=== PATIENT | female | born 1975 | race Caucasian/White ===

== ENCOUNTER → 2019-10-01 16:18 | Outpatient (CLI) | payer OTHER, SELFPAY ==
--- NOTE | ~2019-10-01 | MM_ITS ---
EXAMINATION: MM screening zane BI w yamileth HISTORY: Screening TECHNIQUE: Craniocaudal and mediolateral oblique 3-D tomosynthesis images were obtained and synthetic 2-D images were generated. CAD analysis was submitted and interpreted. COMPARISON: Comparison to multiple prior studies sequentially, with oldest reviewed study dated 07/14. BREAST PARENCHYMAL COMPOSITION: The breasts are extremely dense, which lowers the sensitivity of mamm ography. FINDINGS: There are new focal asymmetries in the posterior central aspect of the right breast near th e chest wall. The left breast is stable without evidence for malignancy. IMPRESSION: 1. New right breast asymmetries. 2. Additional mammographic views and possible breast ultrasound are recommended. BI-RADS Category 0: Incomplete: Needs additional imaging evaluation. Reviewed, dictated and finalized at location A. IMPRESSION: 1. New right breast asymmetries. 2. Additional mammographic views and possible breast ultrasound are recommended . BI-RADS Category 0: Incomplete: Needs additional imaging evaluation.
== END ==
PROVIDERS: Visit Provider Nurse Practitioner
DX: Z12.31 Encounter for screening mammogram for malignant neoplasm of breast (principal); R92.8 Other abnormal and inconclusive findings on diagnostic imaging of breast
CPT/HCPCS: 77063; 77067

== ENCOUNTER → 2019-10-14 10:01 | Outpatient (CLI) | payer OTHER, SELFPAY ==
--- NOTE | ~2019-10-14 | MM_ITS ---
EXAMINATION: MM diagnostic mammo unilat RT HISTORY: Right breast asymmetry on screening mammogram TECHNIQUE: Additional 3-D tomosynthesis images of the right breast were performed and synthetic 2-D i mages were generated. CAD analysis was submitted and interpreted. COMPARISON: 10/01/2019, 07/22/2018, 07/19/2017, 07/14/2016 FINDINGS: No persistent asymmetry is identified with spot compression views of the right breast. Ther e is no evidence of suspicious mass, calcification, or architectural distortion to suggest malignanc y. There has been no suspicious interval change. IMPRESSION: 1. No mammographic evidence of malignancy. 2. Recommend routine screening mammography in one year. BI-RADS Category 1: Negative Reviewed, dictated and finalized at location A.
== END ==
PROVIDERS: Visit Provider Obstetrics & Gynecology Gynecology
DX: R92.8 Other abnormal and inconclusive findings on diagnostic imaging of breast (principal)
CPT/HCPCS: 77065

== ENCOUNTER → 2020-10-04 16:57 | Outpatient (CLI) | payer OTHER, SELFPAY ==
--- NOTE | ~2020-10-04 | MM_ITS ---
EXAMINATION: MM screening [facility] BI w yamileth HISTORY: Screening mammogram TECHNIQUE: Craniocaudal and mediolateral oblique 3-D tomosynthesis images were obtained and synthetic 2-D images were generated. CAD analysis was submitted and interpreted. COMPARISON: 10/14/2019, 10/01/2019, 07/22/2018, 07/19/2017 BREAST PARENCHYMAL COMPOSITION: The breasts are extremely dense, which lowers the sensitivity of mamm ography. FINDINGS: There is no evidence of suspicious mass, calcification, or architectural distortion to sugg est malignancy in either breast. There has been no suspicious interval change. IMPRESSION: 1. No mammographic evidence of malignancy. 2. Recommend routine screening mammography in one year. BI-RADS Category 1: Negative Reviewed, dictated and finalized at location A.
== END ==
PROVIDERS: Visit Provider Nurse Practitioner
DX: Z12.31 Encounter for screening mammogram for malignant neoplasm of breast (principal)
CPT/HCPCS: 77063; 77067

== ENCOUNTER 2021-08-15 02:32 | Day surgery (SDC) | payer OTHER, SELFPAY ==
[2021-07-28 13:04] VITALS: BMI 23.8
[2021-08-15 07:45] VITALS: BP 103/63; PULSE 72; RESP 16; TEMP 36.3; O2SAT 100
[2021-08-15 07:46] VITALS: BMI 23.1
[2021-08-15] MEDS: LACTATED RINGERS 1,000 ML 150 ML IV CONT (07:55)
--- NOTE | 2021-08-15 08:12 | PM.HPGS ---
History of Present Illness History of Present Illness Consent: Risks, benefits, and alternatives have been discussed and questions answered. Patient agrees to proceed with procedure. Chief complaint: neoplasm screening Narrative: Katelynn Fraire is a 46 year old female here for first screening colonoscopy Review of Systems Constitutional: Constitutional: Denies headache(s) and Denies weakness Eyes: Eyes: Denies blurry vision ENT: Reports Normal hearing present, Denies headache(s) and Denies neck pain Cardiovascular: Cardiovascular: Denies chest pain and Denies dyspnea Respiratory: Respiratory: Denies dyspnea Gastrointestinal: Gastrointestinal: Reports no additional gastrointestinal complaints Genitourinary: Genitourinary: Denies dysuria Musculoskeletal: Musculoskeletal: Denies neck pain Integumentary/Breasts: Skin/Breast: Denies dry skin Neurologic: Reports Normal hearing present, Denies headache(s) and Denies weakness Psychiatric: Psychiatric: Denies anxiety Endocrine: Endocrine: Denies change in body appearance Hematologic/Lymphatic: Hematologic/Lymphatic: Denies easy bleeding Allergic/Immunologic: Allergic/Immunologic: Denies urticaria PMF Past Medical History Medical History (Updated 08/15/21 @ 08:13 by Sebastian Brower MD) Colon cancer screening 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 Left leg DVT (~2019) PCOS (polycystic ovarian syndrome) Prothrombin gene mutation Surgical History Surgical History H/O left knee surgery Family History Family History Other Diabetes mellitus Family history of malignant neoplasm Social History Social History Smoking status: Never smoker Second hand tobacco smoke exposure: No Alcohol intake: current Drinks per week: 2 Substance use type: does not use Spiritual care concerns: No Meds Home Medications and Allergies Home Medications Medication Instructions Recorded Confirmed Type drospirenone (contraceptive) 4 mg 4 mg PO DAILY 05/18/20 07/28/21 History (28) tablet (Slynd) Allergies Allergy/AdvReac Type Severity Reaction Status Date / Time Estrogens AdvReac Severe blood clots Verified 08/15/21 07:42 Vital Signs Vital Signs - 24 hr 06/27/22 07:45 Temperature 97.4 F L Pulse Rate 72 Respiratory Rate 16 Blood Pressure 103/63 Pulse Oximetry 100 Oxygen Delivery Room Air Exam Const: General: comfortable and no acute distress HENMT: General nose exam: Normal nares present Eyes: General: appearance normal, both eyes and all related structures Neck: Neck: no JVD Resp: Auscultation: clear to auscultation bilaterally Cardio: Rate: regular rate Rhythm: regular rhythm GI: Inspection: non-distended GI Palp: Yes Soft to palpation Skin: General skin exam: normal color Neuro: General: gait normal Speech: normal speech Extrem: General: normal to inspection Psych: Mental Status: mental status grossly normal Assessment and Plan Assessment and plan (1) Colon cancer screening: Code(s): Z12.11 - Encounter for screening for malignant neoplasm of colon Status: Acute Assessment and Plan: colonoscopy
--- NOTE | 2021-08-15 08:15 | P.PNAN_ITS ---
Anes - Initial Pre Proc Eval Procedure: Operation Date: 08/15/21 08:30 Proposed Procedures p Screening Colonoscopy - Sebastian Brower MD Date/Time: 08/15/21 08:15 Surgeon: Sebastian Brower MD Pre Op Diagnosis: neoplasm screening Patient Data Age: 46 Gender: F Height: 1.7 m Weight: 67 kg Last Vital Signs Temp 97.4 F L 08/15/21 07:45 Pulse 72 08/15/21 07:45 Resp 16 08/15/21 07:45 BP 103/63 08/15/21 07:45 Pulse Ox 100 08/15/21 07:45 O2 Del Method Room Air 08/15/21 07:45 Allergies Allergy/AdvReac Type Severity Reaction Status Date / Time Estrogens AdvReac Severe blood clots Verified 08/15/21 07:42 Home Medications Medication Instructions Recorded Confirmed Type drospirenone (contraceptive) 4 mg 4 mg PO DAILY 05/18/20 07/28/21 History (28) tablet (Slynd) Patient hx anesthesia problems: none Family hx anesthesia problems: none Results Review: All pre-operative results and documents have been reviewed as part of the pre- operative evaluation. 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 Left leg DVT (~2018) PCOS (polycystic ovarian syndrome) Prothrombin gene mutation Surgical History Surgical History H/O left knee surgery Family History Family History Other Diabetes mellitus Family history of malignant neoplasm Social History Social History Smoking status: Never smoker Second hand tobacco smoke exposure: No Alcohol intake: current Drinks per week: 2 Substance use type: does not use Spiritual care concerns: No Anes - Eval Final PreProcedure Day of Procedure 08/15/21 08:15 Patient weight: normal Heart: regular rate and rhythm Lungs: clear to auscultation Airway: Mallampati scale class II Neurological: alert and oriented Last oral intake: >/= 8 hours ASA classification: II Emergent: no Anesthetic plan: proceed Anesthesia type and monitoring: general GIVS and standard monitoring Results Review: All pre-operative results and documents have been reviewed as part of the pre- operative evaluation. Informed Consent: The patient's anesthetic plan and its attendant risks and benefits were discussed with the patient/family/POA. Questions were solicited and answers provided to the satisfaction of the patient/family/POA.
[2021-08-15 08:45] VITALS: BP 106/70; PULSE 78; RESP 15; O2SAT 100
[2021-08-15 08:55] VITALS: BP 109/73; PULSE 67; RESP 12; O2SAT 100
[2021-08-15 09:05] VITALS: BP 111/74; PULSE 70; RESP 14; O2SAT 100
== END 2021-08-15 09:12 | disposition home or self-care (01) ==
PROVIDERS: PCP Family Medicine; Visit Provider Internal Medicine Gastroenterology
PROC: 0DJD8ZZ Inspection of Lower Intestinal Tract, Via Natural or Artificial Opening Endoscopic (ICD-10-PCS; CPT 45378; principal; 2021-08-15 08:30)
DX: Z12.11 Encounter for screening for malignant neoplasm of colon (principal); K64.8 Other hemorrhoids; K63.5 Polyp of colon; Z86.718 Personal history of other venous thrombosis and embolism; E28.2 Polycystic ovarian syndrome; E56.1 Deficiency of vitamin K; D68.8 Other specified coagulation defects; D68.52 Prothrombin gene mutation
CPT/HCPCS: 45385; 88305; J2704; J7120

== ENCOUNTER → 2021-10-06 16:51 | Outpatient (CLI) | payer OTHER, SELFPAY ==
--- NOTE | ~2021-10-06 | MM_ITS ---
EXAMINATION: MM screening zane BI w yamileth HISTORY: Screening mammogram TECHNIQUE: Craniocaudal and mediolateral oblique 3-D tomosynthesis images were obtained and synthetic 2-D images were generated. Bilateral rotated lateral CC views. CAD analysis was submitted and interp reted. COMPARISON: 10/04/2020 bilateral screening mammogram 10/14/2019 diagnostic right mammogram 10/01/2019, 07/22/2018, 07/20/1999 screening mammogram examinations BREAST PARENCHYMAL COMPOSITION: The breasts are extremely dense, which lowers the sensitivity of mamm ography. FINDINGS: There is no evidence of suspicious mass, calcification, or architectural distortion to sugg est malignancy in either breast. There has been no suspicious interval change. IMPRESSION: 1. No mammographic evidence of malignancy. 2. Recommend routine screening mammography in one year. BI-RADS Category 1: Negative Reviewed, dictated and finalized at location A.
== END ==
PROVIDERS: PCP Family Medicine; Visit Provider Nurse Practitioner
DX: Z12.31 Encounter for screening mammogram for malignant neoplasm of breast (principal)
CPT/HCPCS: 77063; 77067

== ENCOUNTER → 2022-02-21 07:56 | Outpatient (CLI) | payer OTHER, SELFPAY ==
--- NOTE | ~2022-02-21 | MMUS_ITS ---
EXAMINATION: MM diagnostic zane LT w yamileth, US breast LT limited HISTORY: Pain in the upper outer quadrant of the left breast TECHNIQUE: Craniocaudal, mediolateral, and mediolateral oblique 3-D tomosynthesis images of the left breast were performed and synthetic 2-D images were generated. CAD analysis was submitted and interpr eted. High resolution limited left breast ultrasound was performed. COMPARISON: 09/26/2021, 10/04/2020, 10/01/2019 BREAST PARENCHYMAL COMPOSITION: The breasts are heterogeneously dense, which may obscure small masses . FINDINGS: MAMMOGRAPHIC FINDINGS: No suspicious mass, calcification, or architectural distortion are identified malignancy. There has been no suspicious interval change. No mammographic correlate is identified for the patient's left b reast pain. ULTRASOUND: There is no evidence of focal abnormal solid or cystic mass in the vicinity of the patient's reported left breast pain. A 3 mm cyst is noted at the 1:00 location 2 cm from the nipple. IMPRESSION: 1. No specific mammographic or sonographic correlate is identified for the reported palpable abnormal ity of concern. Further evaluation at this time should be based on clinical assessment. Continued fol low-up physical examination is recommended. 2. Recommend routine screening mammography in one year. BI-RADS Category 2: Benign finding(s). Reviewed, dictated and finalized at location A. LLECTUAL PROPERTY MANAGER IMPRESSION: 1. No specific mammographic or sonographic correlate is identified for the repo rted palpable abnormality of concern. Further evaluation at this time should be based on clinical assessment. Continued follow-up physical examination is kev mmended. 2. Recommend routine screening mammography in one year. BI-RADS Category 2: Benign finding(s).
== END ==
PROVIDERS: PCP Family Medicine; Visit Provider Nurse Practitioner
DX: N64.4 Mastodynia (principal)
CPT/HCPCS: 76642; 77061; 77065; G0279

== ENCOUNTER → 2022-10-14 10:23 | Outpatient (CLI) | payer OTHER, SELFPAY ==
--- NOTE | ~2022-10-14 | MM_ITS ---
EXAMINATION: MM screening zane BI w yamileth HISTORY: Screening mammogram TECHNIQUE: Craniocaudal and mediolateral oblique 3-D tomosynthesis images were obtained and synthetic 2-D images were generated. Bilateral rotated lateral CC views. CAD analysis was submitted and interp reted. COMPARISON: 02/21/2022 diagnostic left mammogram and limited left breast ultrasound examination 10/06/2021, 10/04/2020 bilateral screening mammogram examinations BREAST PARENCHYMAL COMPOSITION: The breasts are extremely dense, which lowers the sensitivity of mamm ography. FINDINGS: There is no evidence of suspicious mass, calcification, or architectural distortion to sugg est malignancy in either breast. There has been no suspicious interval change. IMPRESSION: 1. No mammographic evidence of malignancy. 2. Recommend routine screening mammography in one year. BI-RADS Category 1: Negative Reviewed, dictated and finalized at location B.
== END ==
PROVIDERS: PCP Family Medicine; Visit Provider Nurse Practitioner
DX: Z12.31 Encounter for screening mammogram for malignant neoplasm of breast (principal)
CPT/HCPCS: 77063; 77067

== ENCOUNTER 2023-02-11 12:45 | Emergency (ER) | payer OTHER, SELFPAY ==
[2023-02-11 13:44] VITALS: BP 115/71; PULSE 102; RESP 16; TEMP 37.1; O2SAT 100
--- NOTE | 2023-02-11 14:50 | ED.GENADULT ---
HPI - General Adult General Chief complaint: Back Pain/Injury Stated complaint: Back pain Source: patient Mode of arrival: ambulatory Limitations: no limitations History of Present Illness HPI narrative: Patient presents for evaluation of left lower back pain. She indicates she had some intermittent pain in the affected area over last 2 days. Today she noted significant spasms in her left lower back when she was changing positions. She has never had similar symptoms in the past. No identified recent injury or precipitating event. 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 She did the exercises that she thought would help her symptoms without considerable improvement thereafter. Pain is localized without radiation. she states that her pain is in the left SI joint. She rates her pain 8/10 severity. Denies any paresthesias or bladder/ bowel incontinence. She tried taking ibuprofen for her symptoms without considerable improvement thereafter. She is getting ready to leave for a trip to [place] for about six days over the holidays. Related Data Home Medications Medication Instructions Recorded Confirmed fluticasone propionate 50 1 spray intranasal DAILY 07/24/22 07/24/22 mcg/actuation nasal spray,suspension (Flonase Allergy Relief) loratadine 10 mg tablet 10 mg PO DAILY 07/24/22 07/24/22 Allergies Allergy/AdvReac Type Severity Reaction Status Date / Time Estrogens AdvReac Severe blood clots Verified 02/11/23 14:43 Review of Systems Review of Systems: CONSTITUTIONAL: Denies fever, chills, or sweats. EYES: Denies visual changes, redness, or discharge. ENT: Denies rhinorrhea, congestion, sore throat, or otalgia. CARDIOVASCULAR: Denies chest pain, palpitations, or edema. RESPIRATORY: Denies cough or dyspnea. GASTROINTESTINAL: Denies abdominal pain, nausea, vomiting, or diarrhea. GENITOURINARY: Denies dysuria or hematuria. SKIN: Denies rash or itching. MUSCULOSKELETAL: Reports left lower back pain and muscle spasms in lower back NEUROLOGIC: Denies headache, numbness, dizziness, or weakness. PSYCHIATRIC: Denies anxiety or depression. 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 HEAD: Normocephalic, atraumatic. EYES: PERRLA and EOMI. ENT: Nares clear, no rhinorrhea or epistaxis. Mucous membranes moist. Oropharynx without tonsillar hypertrophy exudate or other lesions. Bilateral TMs pearly lim nonbulging NECK: Supple. No adenopathy or masses. No carotid bruits or JVD CHEST: Clear to auscultation. No respiratory distress. No wheezes rales or rhonchi HEART: Regular rate and rhythm. No murmur heard. Normal peripheral pulses. ABDOMEN: Soft, nontender, nondistended, normal active bowel sounds. EXTREMITIES: Normal range of motion. No edema. BACK: no tenderness in the midline or paraspinous muscles of the lumbar spine. No tenderness over the SI joint. Positive straight leg raise on the left. SKIN: Warm, dry, no rash. NEURO: No focal deficits. Alert and oriented x3. PSYCH: N
== END 2023-02-11 14:58 | disposition home or self-care (01) ==
PROVIDERS: Emergency Provider Nurse Practitioner; PCP Family Medicine
DX: M53.3 Sacrococcygeal disorders, not elsewhere classified (principal); M62.830 Muscle spasm of back
CPT/HCPCS: 99213; G0463

== ENCOUNTER 2023-04-26 12:57 | Outpatient (CLI) | payer OTHER, SELFPAY ==
--- NOTE | ~2023-04-26 | XR_ITS ---
EXAMINATION: XR lumbar spine min 4V DATE: 04/26/2023 13:21 INDICATION: Low back pain TECHNIQUE: Anteroposterior, lateral, and bilateral oblique views of the lumbar spine, and cone-down l ateral view of the lumbosacral junction were obtained. COMPARISON: None. FINDINGS: 7 degrees of lumbar levocurvature are noted. Bone alignment is normal. There is no fracture . The vertebral body heights and intervertebral disc spaces are maintained. 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 IMPRESSION: 1. Mild lumbar spondylosis and levocurvature without acute findings. Reviewed, dictated and finalized at location L. OVOLTAIC TECHNICIAN
== END 2023-04-26 12:58 ==
LOC: MICIMG 12:59
PROVIDERS: PCP Chiropractor; Visit Provider Chiropractor
DX: M47.896 Other spondylosis, lumbar region (principal)
CPT/HCPCS: 72110

== ENCOUNTER 2024-01-04 14:31 | Outpatient (CLI) | payer OTHER, SELFPAY ==
--- NOTE | ~2024-01-04 | MM_ITS ---
EXAMINATION: MM screening zane BI w yamileth HISTORY: Screening mammogram TECHNIQUE: Craniocaudal and mediolateral oblique 3-D tomosynthesis images were obtained and synthetic 2-D images were generated. CAD analysis was submitted and interpreted. COMPARISON: 10/14/2022, 03/03/2022, 10/06/2021, 10/04/2020, 10/01/2019 BREAST PARENCHYMAL COMPOSITION:Dense: The breasts are extremely dense, which lowers the sensitivity o f mammography. FINDINGS: Focal asymmetric density noted at the lower right breast in MLO view, without definite imag ing correlate on CC projection. Stable parenchymal pattern of the left breast. No suspicious microcal cifications. IMPRESSION: Focally asymmetric density lower right breast. Spot compression and true lateral views, and possibly ultrasound are recommended for further evaluation. BI-RADS Category 0: Incomplete: Needs additional imaging evaluation. Reviewed, dictated and finalized at [facility]. CAL LIBRARIAN IMPRESSION: Focally asymmetric density lower right breast. Spot compression and true later al views, and possibly ultrasound are recommended for further evaluation. BI-RADS Category 0: Incomplete: Needs additional imaging evaluation.
== END 2024-01-04 14:32 | disposition home or self-care (01) ==
LOC: MICIMG 14:32
PROVIDERS: PCP Family Medicine; Visit Provider Obstetrics & Gynecology Gynecology
DX: Z12.31 Encounter for screening mammogram for malignant neoplasm of breast (principal); R92.8 Other abnormal and inconclusive findings on diagnostic imaging of breast
CPT/HCPCS: 77063; 77067

== ENCOUNTER 2024-02-01 09:12 | Outpatient (CLI) | payer OTHER, SELFPAY ==
--- NOTE | ~2024-02-01 | MMUS_ITS ---
EXAMINATION: MM diagnostic zane RT w yamileth, US breast RT limited HISTORY: Follow-up right breast asymmetry TECHNIQUE: Additional 3-D tomosynthesis images of the right breast were performed and synthetic 2-D i mages were generated. CAD analysis was submitted and interpreted. High resolution Limited right breas t ultrasound was performed. COMPARISON: Comparison to multiple prior studies sequentially, with oldest reviewed study dated 10/13. BREAST PARENCHYMAL COMPOSITION: Dense: The breasts are extremely dense, which lowers the sensitivity of mammography. FINDINGS: MAMMOGRAPHIC FINDINGS: The focal asymmetry inferiorly in the right breast compresses with spot views, compatible with superi mposed fibroglandular content. No suspicious masses, calcifications or architectural distortion. ULTRASOUND: Limited right breast ultrasound: At 5:00, 3 cm from the nipple there is an 8 mm simple cyst. No suspi cious masses to suggest malignancy. IMPRESSION: 1. No evidence for malignancy in the right breast. 2. Routine yearly screening mammogram and regular clinical breast examination are recommended. BI-RADS Category 2: Benign finding(s). Reviewed, dictated and finalized at location B. ANIMAL CARETAKER IMPRESSION: 1. No evidence for malignancy in the right breast. 2. Routine yearly screening mammogram and regular clinical breast examination a re recommended. BI-RADS Category 2: Benign finding(s).
== END 2024-02-01 09:13 | disposition home or self-care (01) ==
LOC: MICIMG 09:26
PROVIDERS: PCP Family Medicine; Visit Provider Obstetrics & Gynecology Gynecology
DX: R92.8 Other abnormal and inconclusive findings on diagnostic imaging of breast (principal)
CPT/HCPCS: 76642; 77061; 77065; G0279

== ENCOUNTER 2024-12-15 18:31 | Emergency (ER) | payer OTHER, SELFPAY ==
--- NOTE | ~2024-12-15 | US_ITS ---
EXAMINATION: US venous doppler LE RT DATE: 12/15/2024 19:53 INDICATION: Right lower limb pain TECHNIQUE: Grayscale ultrasound images without and with compression and Doppler ultrasound images of the right lower extremity veins were obtained. COMPARISON: None. FINDINGS: The visualized portions of right common femoral vein, profunda (deep) femoral vein, femoral vein, popliteal vein, peroneal trunk, posterior tibial veins, peroneal veins, gastrocnemius vein and greater saphenous vein outflow are patent. IMPRESSION: 1. No deep venous thrombosis in the right lower limb. Reviewed, dictated and finalized at location A.
[2024-12-15 18:32] VITALS: BP 118/77; PULSE 77; RESP 20; TEMP 36.6; O2SAT 100
--- OUTSIDE RECORDS SUMMARY | 2024-12-15 18:33 | XMS_ITS | Data Portability ---
Author Organization [facility] [place] Address [address] [place] [address] Care Team Providers Care Figure Clerk Name Role Phone COLIN OLSEN Primary Care Provider [phone] Assessment No assessment recorded. Plan of Treatment Reminders Order Date Submit Date Provider Last Modified By Organization Details Last Modified Time Details Appointments MED CHECK 2025 11:30A M ANNETTA Buckner Not available Not available Not available Lab None recorded. Referral None recorded. Procedures None recorded. Surgeries None recorded. Imaging None recorded. Medication Orders progester one micronize d 200 mg capsule 2024 [facility]Pharmacy #[id number], [address] [place], [address], 11/28/2024 13:17:10 estradiol 0.01% (0.1 mg/gram) vaginal cream 2024 025 [facility]/Pharmacy #[id number], [address] [place], [address], 11/28/2024 13:17:10 Patient TargetsNo targets recorded. Patient InstructionsNo instructions recorded. Reason for Referral None Reported. Procedures Surgical History Date Name Laterality Status Provider Name and Address Organization Details Recorded Time 5 Date of Last Pap Smear completed [facility] 11/28/2024 12:33:17 4 Date of Last Mammogram completed [facility] 11/28/2024 12:33:17 2 Date of Last Colonoscopy completed [facility] 11/28/2024 12:33:17 2 Colonoscopy completed [facility] 11/28/2024 12:33:18 9 Orthopedic Surgery completed [facility] 11/28/2024 12:33:18 Imaging Results None recorded. Procedure Notes None recorded. Medical Equipment None Reported. Allergies No known drug allergies Medications Name Sig Start Date Stop Date Status Note LastModified by Organization Details LastModified Time spironolact one 100 mg tablet TAKE 1 TABLET BY MOUTH EVERY DAY active Not Available Not Available No t Available terbinafine HCl 250 mg tablet TAKE ONE PILL ONCE DAILY FOR 12 WEEKS. 11/28 completed Not Available Not Available Not Available progesteron e micronized 200 mg capsule TAKE 1 CAPSULE BY MOUTH EVERY DAY active Not Available Not Available No t Available aspirin 81 mg tablet Take 1 tablet every day by oral route. active Not Available Not Available No t Available estradiol 0.01% (0.1 mg/gram) vaginal cream PLEASE SEE ATTACHED FOR DETAILED DIRECTION S active Not Available Not Available No t Available spironolact one 50 mg tablet TAKE 3 TABLETS BY MOUTH DAILY active Not Available Not Available No t Available Katelynn 0.35 mg tablet TAKE 1 TABLET BY MOUTH EVERY DAY 11/28 completed Not Available Not Available Not Available Slynd 4 mg (28) tablet TAKE 1 TABLET BY MOUTH EVERY DAY 11/28 completed Not Available Not Available Not Available Slynd 11/28 completed Not Available Not Available Not Available Vitals Date Recorded Body height Body mass index (BMI) Body weight Systolic And Diastolic Provider Name and Address Organization Details Last Updated DateTime 11/28/2024 170.18 cm 22.8 kg/m2 50118.33 g 109/71 mm[Hg] [facility] 11/28/2024 12:37:57 Social History Question Answer Notes LastModified by Organizat ion Details LastModified Time Do You Have An Advance Directive? No [email or web address] Information n ot available 11/28/2024 How Many Years Have You Consumed Alcohol? 30 [email or web address] Information not available 11/28/2024 Are You Blind Or Do You Have Difficulty Seeing? No [email or web address] Information not available 11/28/2024 What Is Your Level Of Caffeine Consumption? Moderate [email or web address] Information not available 11/28/2024 How Much Tobacco Do You Chew? None Information not available 11/28/2024 In The 14 Days Before Symptom Onset, Have You Had Close Contact With A Laboratory-confirme d COVID-19 While That Case Was Ill? No [email or web address] Information n ot available 11/28/2024 In The 14 Days Before Symptom Onset, Have You Had Close Contact With A Person Who Is Under Investigation For COVID-19 While That Person Was Ill? No [email or web address] Information not available 11/28/2024 Have You Been To An Area Known To Be High Risk For COVID-19? No [email or web address] Information not available 11/28/2024 Are You Deaf Or Do You Have Serious Difficulty Hearing? No [email or web address] Information not available 11/28/2024 What Type Of Diet Are You Following? REGULAR [email or web address] Information n ot available 11/28/2024 What Is The Highest Grade Or Level Of School You Have Completed Or The Highest Degree You Have Received? AG92971-4 [email or web address] Information not available 11/28/2024 Do You Use Protection During Sex? No [email or web address] Information not available 11/28/2024 Do You Use Your Seat Belt Or Car Seat Routinely? Yes [email or web address] Information not available 11/28/2024 Are You Sexually Active? Yes [email or web address] Information not available 11/28/2024 Do You Have Smoke And Carbon Monoxide Detectors In Your Home? Yes [email or web address] Information not available 11/28/2024 How Much Tobacco Do You Smoke? No [email or web address] Information not available 11/28/2024 Do You Use Sunscreen Routinely? No [email or web address] Information not available 11/28/2024 Have You Used IV Drugs? No [email or web address] Information not available 11/28/2024 Do You Have Difficulty Walking Or Climbing Stairs? No [email or web address] Information not available 11/28/2024 Sex: Unknown Functional Status Question Answer Note LastModified by Organizat ion Details LastModified Time Do you use any illicit or recreational drugs? No [email or web address] Information not available 11/28/2024 What is your level of alcohol consumption? Occasional [email or web address] Information not available 11/28/2024 Are you currently employed? Yes [email or web address] Information not available 11/28/2024 Are you able to walk independently without assistance or assistive devices? YESWOREST [email or web address] Information not available 11/28/2024 Are you able to care for yourself independently? 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 No [email or web address] Information not available 11/28/2024 What is your exercise level? Moderate Information not available 11/28/2024 Mental Status Question Answer Note LastModified by Organization D etails LastModified Time Do you feel stressed (tense, restless, nervous, or anxious, or unable to sleep at night)? [id number] Information not available 11/28/2024 Family History Relationship Description Onset Age of this Age Resolved Age Notes LastModified by Organization Details LastModified Time Father Neoplasm of brain Not available 2024 12:44:45 Notes:Great aunt- BRCA Medical History Condition Response Deep Vein Thrombosis Y Polycystic ovary syndrome Y Hematologic disorders Y Gynecological History Statement/Question Response Abnormal Pap N Date of Last Mammogram 01/04/2024 Date of LMP On BCP's at Conception? N Was last menstrual period normal N STIs/STDs N HPV Vaccine N Current Control Method BCPs Age at First Child 25 Date of Last Colonoscopy 08/15/2021 Most Recent Bone Density Sexually Active? Y Date of DEXA bone scan Age of first menstrual cycle 15 Date of Last Pap Smear 03/05/2024 Sexual Problems? Yes Desired Control Method None LMP Unknown Obstetrics History GPAL:G 7 P 4 0 3 4 Type Value Full Term 4 Spontaneous 3 Living 4 Total 7 Past Encounters Encounter ID Performer Location Encounter Start Date Encounter Closed Date Diagnosis/Indication Diagnosis SNOMED-CT Code Diagnosis ICD10 Code Diagnosis IMO Codes Diagnosis Note [id number] ANNETTA Buckner [place] [address] [place] [id number] 11/28/2024 12:29:44 12/01/2024 11:32:39 Menopause finding 851181912 N95.1 [id number] Today we discussed perimenopa use and associated symptomsre viewed management options (alternati ve hormonal contracept ion options, HRT, nonhormona l options, etc). Reviewed options in relation to her medical hxReviewed decrease libido and possible contributi ng factors (spironola ctone and slynd)opts to d/c slynd and start nightly prometrium , rx sent, r/b/a reviewed. She is aware of the need to use alternativ e contracept ion/condom s.rx vaginal estradiol cream for vaginal drynessF/u with derm encouraged to review alternativ e options for hair thinningRT C for med check in 3-4 months Time spent in visit is a total of 30 mins with at least 50% of visit consisting of counseling and review of plan of care. Reduced libido [id number] R 68.82 [id number] Health Concerns Section Related Observation LastModified by Organization Detai ls LastModified Time None Recorded Concern Status LastModified by Organization Details LastModified Time None Recorded Advance Directives Directive N: Payers Insurance Date Sequence Insurance Name Policy Number Policy Garnica Covered Member ID Garnica Member ID Guarantor Name 12/01/2024 1 [employer] (POS II) [id number] Drew Fraire [id number] Katelynn Fraire Notes Date Note Type Note Provider Name and Address Organization Details Recorded Time 11/28/2024 text/html 49yoHere today to discuss perimenopausal symptoms. Hair thinning, fatigue, trouble sleeping, vaginal dryness, decreased libido over the past yr. Currently on slynd for BC, rarely SA. 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 12/01/2024 11:12:43 OBGyn Episode Ob Episode Information Episode Created Date Number of Fetuses Patient Bloodtype Patient rh Status Prepregnancy Weight lbs Domestic Partner Domestic Partner Phone Father Name Gas Regulator Repairer Helper Status 11/29/19 1 CLOSED Fetus Data First Name Last Name Admitted to NICU Weight (g) Sex Living Outcome Pediatric Complications Fetus ID Race Codes Race Delivery Type [id number] Alvino Calculation Initial Alvino Date Initial Exam Date Initial Exam Provider Initial Ultrasound Date Last Menstrual Period Date Ultra Sound Weeks Gestation 0 Eighteen To Twenty Week Alvino Update Ultra Sound Date Fundal Height At Umbil Quickening Date Ultra Sound Latest Weeks Gestation Final Alvino Confirmed By Final Alvino Confirmed Date Final Alvino Date Ultra Sound Latest Days Gestation 0 0 Menstrual History Last Menstrual Date Menses Monthly On Bcp Conception Prior Menses Frequency Hcg Plus Date Menarche Onset Age Delivery Information Delivery Date Delivery Type Labor Anesthesia Weeks Gestation Incision Type Labor Labor Length Hrs Delivered By Post Complications Tubal Sterilization Discharge Date Comments 1 Discharge Information Feeding Method Contraceptive Method Maternal HG B and HCT Levels Ob Episode Information Episode Created Date Number of Fetuses Patient Bloodtype Patient rh Status Prepregnancy Weight lbs Domestic Partner Domestic Partner Phone Father Name Gas Regulator Repairer Helper Status 11/29/19 1 CLOSED Fetus Data First Name Last Name Admitted to NICU Weight (g) Sex Living Outcome Pediatric Complications Fetus ID Race Codes Race Delivery Type [id number] Alvino Calculation Initial Alvino Date Initial Exam Date Initial Exam Provider Initial Ultrasound Date Last Menstrual Period Date Ultra Sound Weeks Gestation 0 Eighteen To Twenty Week Alvino Update Ultra Sound Date Fundal Height At Umbil Quickening Date Ultra Sound Latest Weeks Gestation Final Alvino Confirmed By Final Alvino Confirmed Date Final Alvino Date Ultra Sound Latest Days Gestation 0 0 Menstrual History Last Menstrual Date Menses Monthly On Bcp Conception Prior Menses Frequency Hcg Plus Date Menarche Onset Age Delivery Information Delivery Date Delivery Type Labor Anesthesia Weeks Gestation Incision Type Labor Labor Length Hrs Delivered By Post Complications Tubal Sterilization Discharge Date Comments 4 Discharge Information Feeding Method Contraceptive Method Maternal HG B and HCT Levels Ob Episode Information Episode Created Date Number of Fetuses Patient Bloodtype Patient rh Status Prepregnancy Weight lbs Domestic Partner Domestic Partner Phone Father Name Gas Regulator Repairer Helper Status 11/29/19 1 CLOSED Fetus Data First Name Last Name Admitted to NICU Weight (g) Sex Living Outcome Pediatric Complications Fetus ID Race Codes Race Delivery Type 4053.75 1704 F Full Term [id number] Vaginal Delivery Alvino Calculation Initial Alvino Date Initial Exam Date Initial Exam Provider Initial Ultrasound Date Last Menstrual Period Date Ultra Sound Weeks Gestation 0 Eighteen To Twenty Week Alvino Update Ultra Sound Date Fundal Height At Umbil Quickening Date Ultra Sound Latest Weeks Gestation Final Alvino Confirmed By Final Alvino Confirmed Date Final Alvino Date Ultra Sound Latest Days Gestation 0 0 Menstrual History Last Menstrual Date Menses Monthly On Bcp Conception Prior Menses Frequency Hcg Plus Date Menarche Onset Age Delivery Information Delivery Date Delivery Type Labor Anesthesia Weeks Gestation Incision Type Labor Labor Length Hrs Delivered By Post Complications Tubal Sterilization Discharge Date Comments 2 41 Discharge Information Feeding Method Contraceptive Method Maternal HG B and HCT Levels Ob Episode Information Episode Created Date Number of Fetuses Patient Bloodtype Patient rh Status Prepregnancy Weight lbs Domestic Partner Domestic Partner Phone Father Name Gas Regulator Repairer Helper Status 11/29/19 25 1 CLOSED Fetus Data First Name Last Name Admitted to NICU Weight (g) Sex Living Outcome Pediatric Complications Fetus ID Race Codes Race Delivery Type 3912.23 1 F Full Term [id number] Vaginal Delivery Alvino Calculation Initial Alvino Date Initial Exam Date Initial Exam Provider Initial Ultrasound Date Last Menstrual Period Date Ultra Sound Weeks Gestation 0 Eighteen To Twenty Week Alvino Update Ultra Sound Date Fundal Height At Umbil Quickening Date Ultra Sound Latest Weeks Gestation Final Alvino Confirmed By Final Alvino Confirmed Date Final Alvino Date Ultra Sound Latest Days Gestation 0 0 Menstrual History Last Menstrual Date Menses Monthly On Bcp Conception Prior Menses Frequency Hcg Plus Date Menarche Onset Age Delivery Information Delivery Date Delivery Type Labor Anesthesia Weeks Gestation Incision Type Labor Labor Length Hrs Delivered By Post Complications Tubal Sterilization Discharge Date Comments 7 39 Discharge Information Feeding Method Contraceptive Method Maternal HG B and HCT Levels Ob Episode Information Episode Created Date Number of Fetuses Patient Bloodtype Patient rh Status Prepregnancy Weight lbs Domestic Partner Domestic Partner Phone Father Name Gas Regulator Repairer Helper Status 11/29/19 25 1 CLOSED Fetus Data First Name Last Name Admitted to NICU Weight (g) Sex Living Outcome Pediatric Complications Fetus ID Race Codes Race Delivery Type 3770.25 6704 F Full Term [id number] Vaginal Delivery Alvino Calculation Initial Alvino Date Initial Exam Date Initial Exam Provider Initial Ultrasound Date Last Menstrual Period Date Ultra Sound Weeks Gestation 0 Eighteen To Twenty Week Alvino Update Ultra Sound Date Fundal Height At Umbil Quickening Date Ultra Sound Latest Weeks Gestation Final Alvino Confirmed By Final Alvino Confirmed Date Final Alvino Date Ultra Sound Latest Days Gestation 0 0 Menstrual History Last Menstrual Date Menses Monthly On Bcp Conception Prior Menses Frequency Hcg Plus Date Menarche Onset Age Delivery Information Delivery Date Delivery Type Labor Anesthesia Weeks Gestation Incision Type Labor Labor Length Hrs Delivered By Post Complications Tubal Sterilization Discharge Date Comments 2 39 Discharge Information Feeding Method Contraceptive Method Maternal HG B and HCT Levels Ob Episode Information Episode Created Date Number of Fetuses Patient Bloodtype Patient rh Status Prepregnancy Weight lbs Domestic Partner Domestic Partner Phone Father Name Gas Regulator Repairer Helper Status 11/29/19 1 CLOSED Fetus Data First Name Last Name Admitted to NICU Weight (g) Sex Living Outcome Pediatric Complications Fetus ID Race Codes Race Delivery Type 3826.95 5704 M Full Term [id number] Vaginal Delivery Alvino Calculation Initial Alvino Date Initial Exam Date Initial Exam Provider Initial Ultrasound Date Last Menstrual Period Date Ultra Sound Weeks Gestation 0 Eighteen To Twenty Week Alvino Update Ultra Sound Date Fundal Height At Umbil Quickening Date Ultra Sound Latest Weeks Gestation Final Alvino Confirmed By Final Alvino Confirmed Date Final Alvino Date Ultra Sound Latest Days Gestation 0 0 Menstrual History Last Menstrual Date Menses Monthly On Bcp Conception Prior Menses Frequency Hcg Plus Date Menarche Onset Age Delivery Information Delivery Date Delivery Type Labor Anesthesia Weeks Gestation Incision Type Labor Labor Length Hrs Delivered By Post Complications Tubal Sterilization Discharge Date Comments 4 39 Discharge Information Feeding Method Contraceptive Method Maternal HG B and HCT Levels Ob Episode Information Episode Created Date Number of Fetuses Patient Bloodtype Patient rh Status Prepregnancy Weight lbs Domestic Partner Domestic Partner Phone Father Name Gas Regulator Repairer Helper Status 11/29/19 1 CLOSED Fetus Data First Name Last Name Admitted to NICU Weight (g) Sex Living Outcome Pediatric Complications Fetus ID Race Codes Race Delivery Type [id number] Alvino Calculation Initial Alvino Date Initial Exam Date Initial Exam Provider Initial Ultrasound Date Last Menstrual Period Date Ultra Sound Weeks Gestation 0 Eighteen To Twenty Week Alvino Update Ultra Sound Date Fundal Height At Umbil Quickening Date Ultra Sound Latest Weeks Gestation Final Alvino Confirmed By Final Alvino Confirmed Date Final Alvino Date Ultra Sound Latest Days Gestation 0 0 Menstrual History Last Menstrual Date Menses Monthly On Bcp Conception Prior Menses Frequency Hcg Plus Date Menarche Onset Age Delivery Information Delivery Date Delivery Type Labor Anesthesia Weeks Gestation Incision Type Labor Labor Length Hrs Delivered By Post Complications Tubal Sterilization Discharge Date Comments 0 Discharge Information Feeding Method Contraceptive Method Maternal HG B and HCT Levels
--- OUTSIDE RECORDS SUMMARY | 2024-12-15 18:33 | XMS_ITS | Clinical Summary ---
Author Organization [facility] [employer] Address [address] [place] [address] Care Team Providers Care Legal Instructor Name Role Phone Nadeen Boo MD Primary Care Provider [phone] Source Comments [facility],non-owned Affiliates and Associated Physician Practices is amultiple site organization consisting of ambulatory clinics and hospital sitesin [place], [place], [place] and [place]. This disclosure is being madepursuant to the Care Everywhere program and may not contain all information available regarding this patient. Last updated 17.[employer] Allergies No known active allergies Medications * Be aware that medications may not be up to date on this document. Alwaysverify current medications with the patient. OtherIndications : control pill Reasons: control pill Active VITAMIN D, CHOLECALCIFEROL, PO Active fluticasone propionate (FLONASE) 50 MCG/ACT nasal sprayIndications :Acute non-recurrent maxillary sinusitis [place] 2 Sprays into each nostril once daily 1 Bottle 7 Active benzonatate (TESSALON) 200 MG capsule Take 1 Cap by mouth 3 times daily as needed for Cough 30 Cap 7 Active Rivaroxaban (XARELTO PO) Active fluticasone propionate (FLONASE) 50 MCG/ACT nasal sprayIndications :Acute sinusitis, recurrence not specified, unspecified location [place] 2 sprays into each nostril once daily 1 bottles 9 Active albuterol HFA (PROVENTIL;KAELA BRANDY;PROAIR) 108 (90 Base) MCG/ACT inhalerIndicatio ns:Bronchitis Inhale 2 puffs by mouth every 6 hours as needed for Wheezing or Cough 1 Inhaler 9 Active Active Problems No known active problems Social History Tobacco Use Types Packs/Day Years Used Date Smoking Tobacco: Never Smokeless Tobacco: Never Alcohol Use Standard Drinks/Week Comments No 0 (1 standard drink = 0.6 oz pur e alcohol) Comments No Sex and Gender Information Value Date Recorded Sex Assigned at Not on file Legal Sex Female 5:08 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[employer] Gender Identity Not on file Sexual Orientation Not on file Last Filed Vital Signs Vital Sign Reading Time Taken Comments Blood Pressure 110/68 10/26/2018 3:27 PM CDT Pulse 76 10/26/2018 3:27 PM CDT Temperature 37.1 C (98.8 F) 10/26/2018 3:27 PM CDT Respiratory Rate 16 10/26/2018 3:27 PM CDT Oxygen Saturation 96% 10/26/2018 3:27 PM CDT Inhaled Oxygen Concentration - - Weight 68 kg (150 lb) 10/26/2018 3:27 PM CDT Height 170.2 cm (5' 7) 10/26/2018 3:27 PM CDT Body Mass Index 23.49 10/26/2018 3:27 PM CDT Plan of Treatment Health Maintenance Due Date Last Done Comments COLOGUARD (AGES 45-75) - COL ON CA SCREENING 1976 COLON MONITORING 1976 COLONOSCOPY - COLON CA SCREENING 1976 CT COLONOGRAPHY - COLON CA SCREENING 1976 Colorectal Cancer Screening 1976 FIT - COLON CA SCREENING 1976 FLEX SIG - COLON CA SCREENING 1976 LIPID TESTING 1976 MAMMOGRAM 1976 HIV SCREENING 07/12/1991 HEPATITIS C SCREENING 07/07/1994 DTAP/TDAP/TD VACCINES (1 - Tdap) 07/12/1995 HEPATITIS B VACCINE (1 of 3 - 19+ 3-dose series) 07/12/1995 DEPRESSION SCREENING 02/20/2024 COVID-19 VACCINE (1 - 2023-2 5 season) 2024 INFLUENZA VACCINE (#1) 2024 ZOSTER VACCINE (1 of 2) 2026 HIB VACCINE Aged Out No longer eligi ble based on patient's age to complete this topic HPV VACCINE Aged Out No longer eligi ble based on patient's age to complete this topic MENINGOCOCCAL (Group B) VACC INE SHARED DECISION-MAKING Aged Out No longer eligibl e based on patient's age to complete this topic MENINGOCOCCAL GROUPS A/C/Y/W VACCINE Aged Out No longer eligible b ased on patient's age to complete this topic PNEUMOCOCCAL VACCINE Aged Out No long er eligible based on patient's age to complete this topic Insurance [employer] * Guarantor: KATELYNN STUBBS Account Type Relation to Patient Date of Phone Billing Address Personal/Family [address] [facility] [address] [place] [address] [employer] Care Teams Legal Instructor Relationship Specialty Start Date End Date Nadeen Boo MD [address] [place] [address] PCP - General 08/24/21
--- NOTE | 2024-12-15 19:57 | ED.LOWEXIN ---
HPI - Extremity Injury (Lower) General Chief Complaint: Extremity Injury, Lower Stated Complaint: right calf pain since sunday Time Seen by Provider: 12/15/24 19:15 Source: patient Mode of arrival: ambulatory Limitations: no limitations History of Present Illness HPI Narrative: This is a 49-year-old female with prior history of DVT who presents to the ED for right calf pain. Patient states for the past day or so, she has been having a slight cramping sensation to her right calf worse with ambulation. She states that she was previously on a blood thinner for a left-sided DVT a few years ago after a knee scope. 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 Denies chest pain, shortness of breath. Related Data Home Medications ?Medication ?Instructions ?Recorded ?Confirmed ?Last Taken ?Type fluticasone propionate 50 1 spray intranasal DAILY 07/24/22 12/09/24 Unknown History mcg/actuation nasal spray,suspension (Flonase Allergy Relief) spironolactone 100 mg tablet 150 mg PO DAILY 11/07/24 12/09/24 Unknown History progesterone micronized 100 mg 200 mg PO DAILY 12/09/24 12/09/24 Unknown History capsule Allergies Allergy/AdvReac Type Severity Reaction Status Date / Time Estrogens AdvReac Severe blood clots Verified 12/15/24 18:32 Review of Systems Review of Systems: Gen.: Denies fevers or chills Eyes: Denies eye pain or visual change ENT: Denies congestion Respiratory: Denies shortness of breath or cough CV: Denies chest pain or palpitations GI: Denies abdominal pain nausea, emesis or diarrhea denies burning, urgency, frequency or hematuria Musculoskeletal: As per HPI Neuro: Denies numbness, tingling, weakness or focal weakness Skin: Denies rash Except as documented, all other systems reviewed and negative PMFSH Past Medical History Medical History Colon cancer screening Prothrombin gene mutation 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 PCOS (polycystic ovarian syndrome) Left leg DVT (~2018) Discoid lateral meniscus of left knee Surgical History Surgical History H/O left knee surgery Family History Family History Other Diabetes mellitus Family history of malignant neoplasm Social History Social History Smoking status: Never smoker Second hand tobacco smoke exposure: No Alcohol intake: current Drinks per week: 2 Substance use: never Substance use type: does not use Living arrangements: with family Spiritual care concerns: No Exam Narrative: APPEARANCE: No acute distress, nontoxic, resting in bed HEENT: Normocephalic, atraumatic, OMM RESPIRATORY: No respiratory distress CARDIOVASCULAR: Appears well perfused ABDOMINAL: Nondistended MUSCULOSKELETAl: Small amount of swelling to the right calf compared to the left. Negative Homans sign. NEURO: Awake and alert. SKIN:: Warm, dry. No rashes lesions or abrasions PSYCHIATRIC: Normal affect/mood, Course Vital Signs Vital signs: Vital Signs Temperature 97.8 F 12/15/24 18:32 Pulse Rate 77 12/15/24 18:32 Respiratory Rate 20 12/15/24 18:32 Blood Pressure 118/77 12/15/24 18:32 Pulse Oximetry 100 12/15/24 18:32 Oxygen Delivery Room Air 12/15/24 18:32 Temperature 97.8 F 12/15/24 18:32 Pulse Rate 77 12/15/24 18:32 Respiratory Rate 20 12/15/24 18:32 Blood Pressure 118/77 12/15/24 18:32 Pulse Oximetry 100 12/15/24 18:32 Oxygen Delivery Room Air 12/15/24 18:32 MDM - Extremity Injury (Lower) MDM Narrative Medical decision making narrative: 49-year-old female Presenting for right lower leg pain and swelling. On initial evaluation patient was in no acute distress afebrile, hemodynamic stable. Differentials include but are not limited to: DVT, pulmonary edema, muscle strain Notable exam findings: Mild swelling to the right calf compared to the left. Notable imaging findings: Ultrasound right lower extremity showed no DVT Patient was deemed appropriate for discharge at this time. Patient educated on compression stocking this or Julius bandages. Patient was advised follow-up with their PCP in the next week for re-evaluation. Patient was agreeable to this plan. Given strict return precautions. Medical Records Attestation: I reviewed the patient's medical records. Imaging Data Attestation: I personally reviewed and interpreted this imaging study as follows: Radiologist's impression: Impressions Venous Doppler Study 12/15/24 20:07 IMPRESSION: 1. No deep venous thrombosis in the right lower limb. Discharge Plan Discharge Clinical Impression: Edema, peripheral Patient Disposition: Home Condition: Stable Instructions: Antibiotic Form Additional Instructions: Ultrasound showed no evidence of DVT. You likely have peripheral edema. He may try compression stockings or in Julius bandage to help promote decreasing the edema. Follow-up with your PCP in the next week or 2 for re-evaluation. Return to the ED for any new or worsening symptoms including chest pain and shortness of breath. Patient Language: Monegasque Prescriptions: No Action fluticasone propionate [Flonase Allergy Relief] 50 mcg/actuation spray,suspension 1 spray intranasal DAILY Rx Instructions: administer into each nostril spironolactone 100 mg tablet 150 mg PO DAILY progesterone micronized 100 mg capsule 200 mg PO DAILY Follow-up/Referrals: Nadeen Boo MD [Primary Care Provider, Family Practice]
== END 2024-12-15 20:40 | disposition home or self-care (01) ==
PROVIDERS: Emergency Provider Student in an Organized Health Care Education/Training Program; PCP Family Medicine
DX: R60.0 Localized edema (principal); E28.2 Polycystic ovarian syndrome; D68.2 Hereditary deficiency of other clotting factors; Z86.718 Personal history of other venous thrombosis and embolism
CPT/HCPCS: 93971; 99284

== ENCOUNTER 2024-12-19 01:09 | Day surgery (SDC) | payer OTHER, SELFPAY ==
[2024-12-09 14:30] VITALS: BMI 21.9
--- OUTSIDE RECORDS SUMMARY | 2024-12-19 01:12 | XMS_ITS | Clinical Summary ---
Author Organization [facility] [place] [address] [place] [address] Care Team Providers Care Hog Room Supervisor Name Role Phone No, Physician Primary Care Provider [phone] Allergies No known active allergies Medications drospirenone, contraceptive, (Slynd) tablet tablet 05/08/2019 Active Active Problems No known active problems Surgical History Surgery Date Site/Laterality Comments KNEE ARTHROSCOPY W/ LATERAL RELEASE 08/14/2018 Family History Medical History Relation Name Comments Cancer Father Walker Cancer Father's Sister Pat Hearing loss Maternal Grandfather Diego Memory loss Maternal Grandfather Diego Vision loss Maternal Grandfather Diego Arthritis Maternal Grandmother Pay Miscarriages / Stillbirths Mother Nelda Diabetes Paternal Grandmother Sheryl Relation Name Status Comments Father Walker Father's Sister Pat Maternal Grandfather Diego Maternal Grandmother Pay Mother Nelda Paternal Grandmother Sheryl Social History Tobacco Use Types Packs/Day Years Used Date Smoking Tobacco: Never Smokeless Tobacco: Never Tobacco Cessation:Counseling Given: Not Answered Personal Safety Answer Date Recorded Getting School Help Needed Not on file 02/04 Comments Unknown Sex and Gender Information Value Date Recorded Sex Assigned at Not on file Legal Sex Female 8:47 PM CARE TECH Gender Identity Not on file Sexual Orientation Not on file Obstetrics History Last Filed Vital Signs Vital Sign Reading Time Taken Comments Blood Pressure 116/80 05/16/2022 12:34 PM CDT Pulse 72 05/16/2022 12:34 PM CDT Temperature 37 C (98.6 F) 05/16/2022 12:34 PM CDT Respiratory Rate 18 05/16/2022 12:34 PM CDT Oxygen Saturation 98% 05/16/2022 12:34 PM CDT Inhaled Oxygen Concentration - - Weight 71.2 kg (157 lb) 05/16/2022 12:34 PM CDT Height 170.2 cm (5' 7) 05/16/2022 12:34 PM CDT Body Mass Index 24.59 05/16/2022 12:34 PM CDT Plan of Treatment Health Maintenance Due Date Last Done Comments Breast Cancer Screening-Mammogram 1975 Cervical Cancer Screening 1975 Colon Cancer Screening-Colonoscopy 1975 Depression Screening 1975 Hepatitis C Screening 1975 DTaP/Tdap/Td Vaccine (1 - Tdap) 07/12/1987 Hepatitis B Screening 1994 Regular Well Visit/Exam 18-64 1994 Covid-19 Vaccine ( season) 2024 02/09/2021, 06/18/2020, 05/21/2020 Influenza Vaccine (#1) 2024 , 10/23/2019, 12/15/2018, Additional history exists Pneumococcal vaccine <65 Aged Out No longer eligible based on patient's age to complete this [place] [address] [facility] Care Teams Hog Room Supervisor Relationship Specialty Start Date End Date No, Physician PCP - General 05/16/22
--- OUTSIDE RECORDS SUMMARY | 2024-12-19 01:12 | XMS_ITS | Data Portability ---
Author Organization [facility] [place] Address [address] [place] [address] Care Team Providers Care Chemical Dependency Professional Name Role Phone COLIN OLSEN Primary Care Provider Assessment No assessment recorded. Plan of Treatment Reminders Order Date Submit Date Provider Last Modified By Organization Details Last Modified Time Details Appointments MED CHECK 2025 11:30A M ANNETTA Buckner Not available Not available Not available Lab None recorded. Referral None recorded. Procedures None recorded. Surgeries None recorded. Imaging None recorded. Medication Orders progester one micronize d 200 mg capsule 2024 [facility]armacy #[id number], [address] [place], [address], 11/28/2024 13:17:10 estradiol 0.01% (0.1 mg/gram) vaginal cream 2024 025 [facility]/Pharmacy #[id number], [address] [place], [address], 11/28/2024 13:17:10 Patient TargetsNo targets recorded. Patient InstructionsNo instructions recorded. Reason for Referral None Reported. Procedures Surgical History Date Name Laterality Status Provider Name and Address Organization Details Recorded Time 5 Date of Last Pap Smear completed [facility] 11/28/2024 12:33:17 4 Date of Last Mammogram completed [facility] 11/28/2024 12:33:17 2 Date of Last Colonoscopy completed [facility] 11/28/2024 12:33:17 2 Colonoscopy completed [facility] 11/28/2024 12:33:18 9 Orthopedic Surgery completed [facility] 11/28/2024 12:33:18 Imaging Results None [...] Updated DateTime 11/28/2024 170.18 cm 22.8 kg/m2 63362.33 g 109/71 mm[Hg] [facility] 11/28/2024 12:37:57 Social History Question Answer Notes LastModified by Organizat ion Details LastModified Time Do You Have An Advance Directive? No [email or web address] Information n ot available 11/28/2024 How Many Years Have You Consumed Alcohol? 30 [email or web address] Information not available 11/28/2024 Are You Blind Or Do You Have Difficulty Seeing? No [email or web address] Information not available 11/28/2024 What Is Your Level Of Caffeine Consumption? Moderate [email or web address] Information not available 11/28/2024 How Much Tobacco Do You Chew? None [email or web address] Information not available 11/28/2024 In The 14 Days Before Symptom Onset, Have You Had Close Contact With A Laboratory-confirme d COVID-19 While That Case Was Ill? No Information n ot available 11/28/2024 In The 14 Days Before Symptom Onset, Have You Had Close Contact With A Person Who Is Under Investigation For COVID-19 While That Person Was Ill? No [email or web address] Information not available 11/28/2024 Have You Been To An Area Known To Be High Risk For COVID-19? No Information not available 11/28/2024 Are You Deaf Or Do You Have Serious Difficulty Hearing? No [email or web address] Information not available 11/28/2024 What Type Of Diet Are You Following? REGULAR [email or web address] Information n ot available 11/28/2024 What Is The Highest Grade Or Level Of School You Have Completed Or The Highest Degree You Have Received? [id number] [email or web address] Information not available 11/28/2024 Do You Use Protection During Sex? No Information not available 11/28/2024 Do You Use Your Seat Belt Or Car Seat Routinely? Yes [email or web address] Information not available 11/28/2024 Are You Sexually Active? Yes [email or web address] Information not available 11/28/2024 Do You Have Smoke And Carbon Monoxide Detectors In Your Home? Yes [email or web address] Information not available 11/28/2024 How Much Tobacco Do You Smoke? No Information not available 11/28/2024 Do You Use Sunscreen Routinely? No [email or web address] Information not available 11/28/2024 Have You Used IV Drugs? No [email or web address] Information not available 11/28/2024 Do You Have Difficulty Walking Or Climbing Stairs? No [email or web address] Information not available 11/28/2024 Sex: Unknown Functional Status Question Answer Note LastModified by Organizat ion Details LastModified Time Do you use any illicit or recreational drugs? No [email or web address] Information not available 11/28/2024 What is your level of alcohol consumption? Occasional [email or web address] Information not available 11/28/2024 Are you currently employed? Yes [email or web address] Information not available 11/28/2024 Are you able to walk independently without assistance or assistive devices? YESWOREST [email or web address] Information not available 11/28/2024 Are you able to care for yourself independently? Yes Information not available 11/28/2024 What is your occupation? [employer] Work[employer] Information not available 11/28/2024 Do you have difficulty dressing, bathing, grooming, or toileting? No [email or web address] Information not available 11/28/2024 What is your exercise level? Moderate [email or web address] Information not available 11/28/2024 Mental Status Question Answer Note LastModified by Organization D etails LastModified Time Do you feel stressed (tense, restless, nervous, or anxious, or unable to sleep at night)? [id number] [email or web address] Information not available 11/28/2024 Family History Relationship Description Onset Age of this Age Resolved Age Notes LastModified by Organization Details LastModified Time Father Neoplasm of brain [email or web address] Not available 2024 12:44:45 Notes:Great aunt- BRCA [...] ICD10 Code Diagnosis IMO Codes Diagnosis Note [id number] ANNETTA Buckner [place] [address] [place] [id number] 11/28/2024 12:29:44 12/01/2024 11:32:39 Menopause finding [id number] N95.1 [id number] Today we discussed perimenopa use and associated [...] review of plan of care. Reduced libido [id number] R 68.82 [id number] Health Concerns Section Related Observation LastModified by Organization Detai ls LastModified Time None Recorded Concern Status LastModified by Organization Details LastModified Time None Recorded Advance Directives Directive N: Payers Insurance Date Sequence Insurance Name Policy Number Policy Garnica Covered Member ID Garnica Member ID Guarantor Name 12/01/2024 1 [employer] (POS II) [id number] Drew Fraire [id number] Katelynn Fraire Notes Date Note Type [...] gene mutation ANNETTA Buckner [address], [place], [address], [place] [facility] 12/01/2024 11:12:43 OBGyn Episode Ob Episode Information Episode Created Date Number of Fetuses Patient Bloodtype Patient rh Status Prepregnancy Weight lbs Domestic Partner Domestic Partner Phone Father Name Cd Reactor Operator Status 11/29/19 1 CLOSED Fetus Data First Name Last Name Admitted to NICU Weight (g) Sex Living Outcome Pediatric Complications Fetus ID Race Codes Race Delivery Type 28791 Alvino Calculation Initial Alvino Date Initial Exam [...] Domestic Partner Domestic Partner Phone Father Name Cd Reactor Operator Status 11/29/19 1 CLOSED Fetus Data First Name Last Name Admitted to NICU Weight (g) Sex Living Outcome Pediatric Complications Fetus ID Race Codes Race Delivery Type 47286 Alvino Calculation Initial Alvino Date Initial Exam [...] Domestic Partner Domestic Partner Phone Father Name Cd Reactor Operator Status 11/29/19 1 CLOSED Fetus Data First Name Last Name Admitted to NICU Weight (g) Sex Living Outcome Pediatric Complications Fetus ID Race Codes Race Delivery Type 4053.75 1704 F Full Term 09261 Vaginal Delivery Alvino Calculation Initial Alvino Date [...] Domestic Partner Domestic Partner Phone Father Name Cd Reactor Operator Status 11/29/19 25 1 CLOSED Fetus Data First Name Last Name Admitted to NICU Weight (g) Sex Living Outcome Pediatric Complications Fetus ID Race Codes Race Delivery Type 3912.23 1 F Full Term 16226 Vaginal Delivery Alvino Calculation Initial Alvino Date [...] Domestic Partner Domestic Partner Phone Father Name Cd Reactor Operator Status 11/29/19 25 1 CLOSED Fetus Data First Name Last Name Admitted to NICU Weight (g) Sex Living Outcome Pediatric Complications Fetus ID Race Codes Race Delivery Type 3770.25 6704 F Full Term 01631 Vaginal Delivery Alvino Calculation Initial Alvino Date Initial Exam Date Initial Exam Provider Initial Ultrasound Date Last Menstrual Period Date Ultra Sound Weeks Gestation 0 Eighteen To Twenty Week Alvion Update Ultra Sound Date Fundal Height At [...] Domestic Partner Domestic Partner Phone Father Name Cd Reactor Operator Status 11/29/19 1 CLOSED Fetus Data First Name Last Name Admitted to NICU Weight (g) Sex Living Outcome Pediatric Complications Fetus ID Race Codes Race Delivery Type 3826.95 5704 M Full Term 78166 Vaginal Delivery Alvino Calculation Initial Alvino Date [...] Domestic Partner Domestic Partner Phone Father Name Cd Reactor Operator Status 11/29/19 1 CLOSED Fetus Data First Name Last Name Admitted to NICU Weight (g) Sex Living Outcome Pediatric Complications Fetus ID Race Codes Race Delivery Type 79083 Alvino Calculation Initial Alvino Date Initial Exam [...]
--- OUTSIDE RECORDS SUMMARY | 2024-12-19 01:12 | XMS_ITS | Clinical Summary ---
Author Organization [facility] Address [address] [place] [address] Care Team Providers Care Franchise Consultant Name Role Phone Nadeen Boo MD Primary Care Provider [phone] Source Comments [facility],non-owned Affiliates and Associated Physician Practices is amultiple site organization consisting of ambulatory clinics and hospital sitesin [place], [place], [place] and [place]. This disclosure is being madepursuant to the Care Everywhere program and may not contain all information available regarding this patient. Last updated 17.[employer] [facility] Allergies No known active allergies Medications * Be aware that medications may not be up to date on this document. Alwaysverify current medications with the patient. OtherIndications : control pill Reasons: control pill Active VITAMIN D, CHOLECALCIFEROL, PO Active fluticasone propionate (FLONASE) 50 MCG/ACT nasal sprayIndications :Acute non-recurrent maxillary sinusitis [place] 2 Sprays into each nostril once daily 1 Bottle 7 Active benzonatate (TESSALON) 200 MG capsule Take 1 Cap by mouth 3 times daily as needed for Cough 30 Cap 7 Active Rivaroxaban (XARELTO PO) Active fluticasone propionate (FLONASE) 50 MCG/ACT nasal sprayIndications :Acute sinusitis, recurrence not specified, unspecified location [place] 2 sprays into each nostril once daily [...] on file Legal Sex Female 5:08 PM HOOKER OFF Gender Identity Not on file Sexual Orientation [...] Date of Phone Billing Address Personal/Family [address] [facility] [place] [address] [employer] Care Teams Franchise Consultant Relationship Specialty Start Date End Date Nadeen Boo MD [address] [place] [address] PCP - General 08/24/21
[2024-12-19 06:47] VITALS: BP 105/61; PULSE 89; RESP 16; TEMP 36.3; O2SAT 99
[2024-12-19 06:50] LABS: BEDSIDEPREGUCG Negative (Negative)
[2024-12-19] MEDS: LACTATED RINGERS 1,000 ML 150 ML IV CONT (06:57)
--- NOTE | 2024-12-19 07:15 | P.PNAN_ITS ---
Anes - Initial Pre Proc Eval Procedure: Operation Date: 12/19/24 08:00 Proposed Procedures p Screening Colonoscopy - Sebastian Brower MD Date/Time: 12/19/24 07:15 Surgeon: Sebastian Brower MD Pre Op Diagnosis: Personal history of colon polyps, unspecified Patient Data Age: 49 Gender: F Height: 1.7 m Weight: 63.5 kg Last Vital Signs Temp 36.3 C L 12/19/24 06:47 Pulse 89 12/19/24 06:47 Resp 16 12/19/24 06:47 BP 105/61 12/19/24 06:47 Pulse Ox 99 12/19/24 06:47 O2 Del Method Room Air 12/19/24 06:47 Allergies Allergy/AdvReac Type Severity Reaction Status Date / Time Estrogens AdvReac Severe blood clots Verified 12/19/24 06:40 Home Medications ?Medication ?Instructions ?Recorded ?Confirmed ?Type fluticasone propionate 50 1 spray intranasal DAILY 07/1112/19/24 History mcg/actuation nasal spray,suspension (Flonase Allergy Relief) spironolactone 100 mg tablet 150 mg PO DAILY 11/07/24 12/19/24 History progesterone micronized 100 mg 200 mg PO DAILY 5 12/19/24 History capsule Laboratory Tests 12/19/24 06:47 POC Urine HCG, Qual Negative (Negative) Patient hx anesthesia problems: none Family hx anesthesia problems: none Results Review: All pre-operative results and documents have been reviewed as part of the pre- operative evaluation. 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 PCOS (polycystic ovarian syndrome) Left leg DVT (~2018) Discoid lateral meniscus of left knee Surgical History Surgical History H/O left knee surgery Family History Family History Other Diabetes mellitus Family history of malignant neoplasm Social History Social History Smoking status: Never smoker Second hand tobacco smoke exposure: No Alcohol intake: current Drinks per week: 2 Substance use: never Substance use type: does not use Living arrangements: with family Spiritual care concerns: No Anes - Eval Final PreProcedure Day of Procedure 12/19/24 07:15 Patient weight: normal Heart: regular rate and rhythm Lungs: clear to auscultation Airway: Mallampati scale class II Neurological: alert and oriented Last oral intake: >/= 8 hours ASA classification: II Emergent: no Anesthetic plan: proceed Anesthesia type and monitoring: general GIVS and standard monitoring Results Review: All pre-operative results and documents have been reviewed as part of the pre- operative evaluation. Informed Consent: The patient's anesthetic plan and its attendant risks and benefits were discussed with the patient/family/POA. Questions were solicited and answers provided to the satisfaction of the patient/family/POA.
--- NOTE | 2024-12-19 07:53 | PM.HPGS ---
History of Present Illness History of Present Illness Consent: Risks, benefits, and alternatives have been discussed and questions answered. Patient agrees to proceed with procedure. 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 PCOS (polycystic ovarian syndrome) Left leg DVT (~2018) Discoid lateral meniscus of left knee Surgical History Surgical History H/O left knee surgery Family History Family History Other Diabetes mellitus Family history of malignant neoplasm Social History Social History Smoking status: Never smoker Second hand tobacco smoke exposure: No Alcohol intake: current Drinks per week: 2 Substance use: never Substance use type: does not use Living arrangements: with family Spiritual care concerns: No Meds Home Medications and Allergies Home Medications ?Medication ?Instructions ?Recorded ?Confirmed ?Type fluticasone propionate 50 1 spray intranasal DAILY 07/24/22 12/19/24 History mcg/actuation nasal spray,suspension (Flonase Allergy Relief) spironolactone 100 mg tablet 150 mg PO DAILY 11/07/24 12/19/24 History progesterone micronized 100 mg 200 mg PO DAILY 12/09/24 12/19/24 History capsule Allergies Allergy/AdvReac Type Severity Reaction Status Date / Time Estrogens AdvReac Severe blood clots Verified 12/19/24 06:40 Vital Signs Vital Signs - 24 hr 12/19/24 06:47 Temperature 97.3 F L Pulse Rate 89 Respiratory Rate 16 Blood Pressure 105/61 Pulse Oximetry 99 Oxygen Delivery Room Air Exam Const: General: comfortable and no acute distress HENMT: Face/Nose/Sinus: Normal nares present Eyes: General: appearance normal, both eyes and all related structures Neck: Neck: no JVD Resp: Auscultation: clear to auscultation bilaterally Cardio: Rate: regular rate Rhythm: regular rhythm GI: Inspection: non-distended GI Palp: Yes Soft to palpation Skin: General skin exam: normal color Extrem: General: normal to inspection Psych: Mental Status: mental status grossly normal Assessment and Plan Assessment and plan (1) Colon polyp: Code(s): K63.5 - Polyp of colon Status: Acute Assessment and Plan: colonoscopy
--- NOTE | 2024-12-19 08:09 | S_PTH ---
PATIENT: Katelynn Fraire LOC: [facility]#:[id number] AGE/SX: 49/F ROOM: RE12/19/[address]: Sebastina Brower MD : 1975 BED: DIS: 12/19/2024 SPEC #: [id number] RECD: 12/19/24 09:12 STATUS: LEONIDES REAdelfo #: [id number] GARRISON: 12/19/24 08:[address]: Sebastian Brower DEPT: [facility] Surgical RECD BY: Nilda Zamorano ENTERED: 12/19/24 09:12 SP TYPE: Surgical OTHR DR: Diya Beach PA-C Tissues: A - Colon Polypectomy Procedures: Hematoxylin and Eosin Stain Gross and Microscopic Level 4
[2024-12-19 08:12] VITALS: BP 98/59; PULSE 72; RESP 15; O2SAT 98
[2024-12-19 08:22] VITALS: BP 106/66; PULSE 75; RESP 18; O2SAT 98
[2024-12-19 08:32] VITALS: BP 100/68; PULSE 71; RESP 14; O2SAT 100
== END 2024-12-19 08:46 | disposition home or self-care (01) ==
PROVIDERS: Anesthesiology; PCP Student in an Organized Health Care Education/Training Program; Referring Provider Internal Medicine Gastroenterology; Visit Provider Internal Medicine Gastroenterology
PROC: 0DJD8ZZ Inspection of Lower Intestinal Tract, Via Natural or Artificial Opening Endoscopic (ICD-10-PCS; CPT 45378; principal; 2024-12-19 08:00)
DX: Z12.11 Encounter for screening for malignant neoplasm of colon (principal); D12.3 Benign neoplasm of transverse colon; K64.8 Other hemorrhoids; E28.2 Polycystic ovarian syndrome; E56.1 Deficiency of vitamin K; D68.52 Prothrombin gene mutation; D68.2 Hereditary deficiency of other clotting factors; Z98.890 Other specified postprocedural states; Z86.718 Personal history of other venous thrombosis and embolism; Z80.9 Family history of malignant neoplasm, unspecified
CPT/HCPCS: 45385; 88305; J2003; J2704; J7120

== ENCOUNTER 2025-01-09 12:50 | Outpatient (CLI) | payer OTHER, SELFPAY ==
--- NOTE | ~2025-01-09 | MM_ITS ---
EXAMINATION: MM screening zane BI w yamileth HISTORY: Screening TECHNIQUE: Craniocaudal and mediolateral oblique 3-D tomosynthesis images were obtained and synthetic 2-D images were generated. CAD analysis was submitted and interpreted. COMPARISON: Comparison to multiple prior studies sequentially, with oldest reviewed study dated 10/04/2020. BREAST PARENCHYMAL COMPOSITION: Dense: The breasts are extremely dense, which lowers the sensitivity of mammography. FINDINGS: There is no evidence of suspicious mass, calcification, or architectural distortion to suggest malignancy in either breast. There has been no suspicious interval change. IMPRESSION: 1. No mammographic evidence of malignancy. 2. Recommend routine screening mammography in one year. BI-RADS Category 1: Negative Reviewed, dictated and finalized at location O. 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
== END 2025-01-09 12:51 | disposition home or self-care (01) ==
PROVIDERS: PCP Nurse Practitioner; Visit Provider Obstetrics & Gynecology Gynecology
DX: Z12.31 Encounter for screening mammogram for malignant neoplasm of breast (principal)
CPT/HCPCS: 77063; 77067